=== PATIENT | female | born 1940 | race Caucasian/White ===

== ENCOUNTER 2018-06-07 07:52 | Day surgery (SDC) | payer MEDICARE, OTHER ==
[~2018-06-07] VITALS: Ht 157.5 cm; Wt 78.9 kg
[2018-06-07] MEDS ORDERED: METO25ER (09:04)
[2018-06-07] MEDS ORDERED: Hydrochloroth12.5 MG (09:05)
[2018-06-07] MEDS ORDERED: LEVSOD100 (09:05)
[2018-06-07] MEDS ORDERED: MIRT15 (09:06)
[2018-06-07] MEDS ORDERED: SIMV40 (09:06)
--- NOTE | 2018-06-07 09:28 | NUR ---
06/07/18 0928 Carlita Banks AND 1.5MG IV METOPROLOL GIVEN PER DR. GARCIA. METOPROLOL DOSE VARIFIED WITH ORSC.KT
--- NOTE | 2018-06-07 10:08 | NUR ---
06/07/18 1008 Carlita Banks NEAR CECUM BURNED.
== END 2018-06-07 10:59 | disposition home or self-care (01) ==
LOC: ORSCSDS 07:52
PROVIDERS: Internal Medicine Gastroenterology
PROC: 0D5H8ZZ Destruction of Cecum, Via Natural or Artificial Opening Endoscopic (ICD-10-PCS; principal; 2018-06-07 09:45)
PROC: 0DBM8ZX Excision of Descending Colon, Via Natural or Artificial Opening Endoscopic, Diagnostic (ICD-10-PCS; principal; 2018-06-07 09:45)
PROC: 0DBK8ZX Excision of Ascending Colon, Via Natural or Artificial Opening Endoscopic, Diagnostic (ICD-10-PCS; principal; 2018-06-07 09:45)
PROC: 0DBN8ZX Excision of Sigmoid Colon, Via Natural or Artificial Opening Endoscopic, Diagnostic (ICD-10-PCS; principal; 2018-06-07 09:45)
DX: Z12.11 Encounter for screening for malignant neoplasm of colon (principal); D12.2 Benign neoplasm of ascending colon; D12.4 Benign neoplasm of descending colon; K63.5 Polyp of colon; K57.30 Diverticulosis of large intestine without perforation or abscess without bleeding; K64.8 Other hemorrhoids; K64.4 Residual hemorrhoidal skin tags; I10 Essential (primary) hypertension; Z87.891 Personal history of nicotine dependence; J44.9 Chronic obstructive pulmonary disease, unspecified; E66.9 Obesity, unspecified; Z68.31 Body mass index [BMI] 31.0-31.9, adult; Z79.82 Long term (current) use of aspirin; Z79.899 Other long term (current) drug therapy
CPT/HCPCS: 88305; J7120

== ENCOUNTER → 2019-01-15 | Outpatient (CLI) | payer MEDICARE, OTHER ==
[~2019-01-15] MED LIST: Hydrochloroth12.5 MG; LEVSOD100; METO25ER; MIRT15; SIMV40
== END | disposition home or self-care (01) ==
LOC: LAB SHORT 07:48 → PLD 07:48
DX: L60.2 Onychogryphosis (principal); B35.1 Tinea unguium
CPT/HCPCS: 88305; 88312

== ENCOUNTER → 2019-01-28 | Outpatient (CLI) | payer MEDICARE, OTHER ==
[2019-01-28 11:35] LABS: Source, Urine Clean Catch
[2019-01-28 11:57] LABS: Bilirubin, Urine Neg (Neg); Blood, Urine 3+ (Neg); Glucose Qualitative, Urine Neg (Neg); Ketones, Urine Neg (Neg); Leukocyte Esterase, Urine Neg (Neg); Nitrite, Urine Neg (Neg); Protein, Urine Neg (Neg); Specific Gravity, Urine 1.005 (1.003-1.022); Urobilinogen, Urine NORM (Normal)
[2019-01-28 12:06] LABS: Appearance, Urine Clear (Clear); Bacteria Not Seen /hpf; Color, Urine Yellow (P-Yellow); Red Blood Cells, Urine 0-2 /hpf (0-2); Squamous Epithelial Cells Many /hpf (Few); White Blood Cells, Urine Not Seen /hpf (0-5)
== END | disposition home or self-care (01) ==
LOC: LAB 11:34 → LAB SHORT 11:34
PROVIDERS: Internal Medicine
DX: N39.0 Urinary tract infection, site not specified (principal)
CPT/HCPCS: 81001

== ENCOUNTER → 2019-02-26 | Outpatient (CLI) | payer MEDICARE, OTHER ==
[2019-02-26 10:52] LABS: Source, Urine Clean Catch
[2019-02-26 11:31] LABS: Bilirubin, Urine Neg (Neg); Blood, Urine 3+ (Neg); Glucose Qualitative, Urine Neg (Neg); Ketones, Urine Neg (Neg); Leukocyte Esterase, Urine Neg (Neg); Nitrite, Urine Neg (Neg); Protein, Urine Neg (Neg); Urobilinogen, Urine NORM (Normal); pH, Urine 6.5 (5.0-8.0)
[2019-02-26 12:02] LABS: Appearance, Urine Clear (Clear); Color, Urine Yellow (P-Yellow)
[2019-02-26 12:05] LABS: Bacteria Mod /hpf; Squamous Epithelial Cells Mod /hpf (Few)
== END | disposition home or self-care (01) ==
LOC: LAB SHORT 10:45 → LAB 10:45 → LAB SO 02-01 10:30
PROVIDERS: Internal Medicine
DX: N39.0 Urinary tract infection, site not specified (principal)
CPT/HCPCS: 81001; 87086

== ENCOUNTER 2023-01-02 05:39 | Emergency (ER) | payer MEDICARE, OTHER ==
[~2023-01-02] VITALS: Ht 157.5 cm; Wt 54.4 kg
[~2023-01-02 05:39] MED LIST changes: +FOSAMAX70 MG PO; +HYDCHL25 PO; +METOPROLOL TART25 MG PO; +Potassium Chlo20 ME1 PO; +STRIVERDI RESPIM4 G1 IH; +Simvastatin20 MG PO
[2023-01-02 06:14] LABS: BASOPHILS ABSOLUTE AUTO 0.04 K/mm3 (0.00-0.23); BASOPHILS PERCENT AUTO 1 % (0-2); EOSINOPHILS ABSOLUTE AUTO 0.14 K/mm3 (0.00-0.68); EOSINOPHILS PERCENT AUTO 2 % (0-6); Hematocrit 34.1 % (33.0-51.0); Hemoglobin 11.5 g/dL (11.5-16.0); IMMATURE GRAN ABSOLUTE AUTO 0.02 K/mm3 (0.00-0.10); IMMATURE GRAN PERCENT AUTO 0 % (0-1); LYMPHOCYTES ABSOLUTE AUTO 3.03 K/mm3 (0.84-5.20); LYMPHOCYTES PERCENT AUTO 36 % (21-46); MONOCYTES PERCENT AUTO 5 % (4-13); Mean Corpuscular HGB 29.9 pg (26.0-34.0); Mean Corpuscular HGB Conc 33.7 g/dL (31.5-36.5); Mean Corpuscular Volume 89 fL (80-100); NEUTROPHILS ABSOLUTE AUTO 4.78 K/mm3 (1.96-9.15); NEUTROPHILS PERCENT AUTO 57 % (41-73); Platelet Count 116 K/mm3 (150-400); RDW Coefficient Variation 12.7 % (11.7-14.2); RDW Standard Deviation 41.1 fL (35.1-46.3); Red Blood Cell Count 3.84 M/mm3 (3.80-5.20); White Blood Cell Count 8.41 K/mm3 (4.00-11.30)
[2023-01-02 06:31] LABS: Albumin, Blood 3.7 g/dL (3.4-5.0); Albumin/Globulin Ratio 1.1 (0.8-1.8); Bilirubin, Total 0.6 mg/dL (0.1-1.0); Calcium, Blood 9.6 mg/dL (8.5-10.1); Creatinine, Blood 0.66 mg/dL (0.40-1.00); Globulin, Blood 3.3 g/dL (2.2-4.0); Potassium, Blood 3.1 mmol/L (3.5-5.5)
[2023-01-02] MEDS ORDERED: MECL25 PO (08:12)
[2023-01-02 09:30] VITALS: BP 113/71
== END 2023-01-02 09:31 | disposition home or self-care (01) ==
LOC: ER 05:39
PROVIDERS: Student in an Organized Health Care Education/Training Program
DX: R42 Dizziness and giddiness (principal); E87.6 Hypokalemia; R11.0 Nausea; J44.9 Chronic obstructive pulmonary disease, unspecified; Z88.5 Allergy status to narcotic agent; Z79.899 Other long term (current) drug therapy; F17.200 Nicotine dependence, unspecified, uncomplicated
CPT/HCPCS: 80053; 85025; 99283; A9270

== ENCOUNTER 2023-01-12 16:46 | Observation (INO) | payer MEDICARE, OTHER ==
[~2023-01-12] VITALS: Ht 157.5 cm; Wt 54.4 kg
[~2023-01-12 16:46] MED LIST changes: -LEVSOD100; +LEVSOD100 PO; +MECL25 PO; -MIRT15; +MIRT15 PO; -Potassium Chlo20 ME1 PO
[2023-01-12 17:27] LABS: BASOPHILS ABSOLUTE AUTO 0.04 K/mm3 (0.00-0.23); BASOPHILS PERCENT AUTO 0 % (0-2); EOSINOPHILS ABSOLUTE AUTO 0.09 K/mm3 (0.00-0.68); EOSINOPHILS PERCENT AUTO 1 % (0-6); Hematocrit 33.8 % (33.0-51.0); Hemoglobin 11.5 g/dL (11.5-16.0); IMMATURE GRAN ABSOLUTE AUTO 0.02 K/mm3 (0.00-0.10); IMMATURE GRAN PERCENT AUTO 0 % (0-1); LYMPHOCYTES ABSOLUTE AUTO 2.44 K/mm3 (0.84-5.20); LYMPHOCYTES PERCENT AUTO 24 % (21-46); MONOCYTES ABSOLUTE AUTO 0.53 K/mm3 (0.16-1.47); MONOCYTES PERCENT AUTO 5 % (4-13); Mean Corpuscular HGB 30.1 pg (26.0-34.0); Mean Corpuscular Volume 89 fL (80-100); Mean Platelet Volume 9.9 fL (9.1-12.4); NEUTROPHILS ABSOLUTE AUTO 6.86 K/mm3 (1.96-9.15); NEUTROPHILS PERCENT AUTO 69 % (41-73); Platelet Count 151 K/mm3 (150-400); RDW Coefficient Variation 12.5 % (11.7-14.2); RDW Standard Deviation 40.2 fL (35.1-46.3); Red Blood Cell Count 3.82 M/mm3 (3.80-5.20); White Blood Cell Count 9.98 K/mm3 (4.00-11.30)
[2023-01-12 17:51] LABS: Albumin, Blood 3.9 g/dL (3.4-5.0); Albumin/Globulin Ratio 1.1 (0.8-1.8); Bilirubin, Total 0.5 mg/dL (0.1-1.0); Bun/Creatinine Ratio 39.6 (12.0-20.0); Calcium, Blood 10.4 mg/dL (8.5-10.1); Creatinine, Blood 0.56 mg/dL (0.40-1.00); Globulin, Blood 3.7 g/dL (2.2-4.0); Potassium, Blood 3.4 mmol/L (3.5-5.5); Total Protein, Blood 7.6 g/dL (6.4-8.2)
[2023-01-12] MEDS ORDERED: Potassium Chlo20 ME1 PO ×2 (18:35)
[2023-01-12] MEDS ORDERED: VITAMIN D310 MC4 PO ×2 (18:36)
[2023-01-12 22:00] LABS: International Normalized Ratio 1.16; Prothrombin Time Results 12.1 Sec (9.7-11.5)
[2023-01-12] MEDS ORDERED: GABA100 PO ×2 (23:22)
[2023-01-13 02:55] VITALS: BP 131/75
--- NOTE | 2023-01-13 03:05 | NUR ---
PATIENT ARRIVED FROM THE ER TODAY AT 0250. PATIENT IS DROWSY BUT IS AWAKENED TO VERBAL STIMULI. SHE ANSWERS QUESTIONS APPROPRIATELY. VS ARE WNL AND IS ON HER BASELINE OF 2L NC WITH >90% OXYGEN SATS. PATIENTS LUNG SOUNDS ARE DIMINISHED IN THE BASES AND SHE ALSO HAD A MOIST/PRODUCTIVE COUGH WITH LIGHT YELLOW COLORED PHLEGM SHE SPIT INTO A TISSUE. PATIENTS HOME CPAP IS IN THE ROOM, THIS NURSE NOTIFIED RT WHO WILL COME AND SET IT UP SHORTLY. PATIENT IS LAYING IN BED SNORING WITH CALL LIGHT IN REACH. DAUGHTER IS AT BEDSIDE WELL.
[2023-01-13 06:00] LABS: Hematocrit 31.9 % (33.0-51.0); Hemoglobin 10.6 g/dL (11.5-16.0); Mean Corpuscular HGB 29.9 pg (26.0-34.0); Mean Corpuscular HGB Conc 33.2 g/dL (31.5-36.5); Mean Corpuscular Volume 90 fL (80-100); Mean Platelet Volume 10.1 fL (9.1-12.4); Platelet Count 130 K/mm3 (150-400); RDW Coefficient Variation 12.4 % (11.7-14.2); RDW Standard Deviation 41.5 fL (35.1-46.3); Red Blood Cell Count 3.55 M/mm3 (3.80-5.20); White Blood Cell Count 9.08 K/mm3 (4.00-11.30)
[2023-01-13 06:32] LABS: Albumin, Blood 3.3 g/dL (3.4-5.0); Albumin/Globulin Ratio 1.1 (0.8-1.8); Bilirubin, Total 0.5 mg/dL (0.1-1.0); Bun/Creatinine Ratio 27.7 (12.0-20.0); Calcium, Blood 9.1 mg/dL (8.5-10.1); Creatinine, Blood 0.65 mg/dL (0.40-1.00); Potassium, Blood 3.7 mmol/L (3.5-5.5); Total Protein, Blood 6.3 g/dL (6.4-8.2)
[2023-01-13 08:07] VITALS: BP 139/79
--- NOTE | 2023-01-13 09:55 | NUR ---
AM NOTE: PATIENT ALERT AND ORIENTED X4. PERRLA, WEARING GLASSES. HISTORY OF NEUROPATHY. UP 1 PERSON ASSIST TO BSC, USING FWW. ABLE TO MOVE AND TURN SELF IN BED. ON 2L NASAL CANNULA SATING MID-HIGH 90'S. DENIES SOB. OCCASIONAL COUGH WITH CLEAR/THIN SPUTUM. HOME CPAP ON [place]. NO TELE. BP STABLE. DENIES CHEST PAIN/PRESSURE/PALPITATIONS. MINIMAL EDEMA NOTED TO BLE. NS INFUSING PER EMAR. BOWEL TONES PRESENT. PATIENT STATES 2 EPISODES OF BLOODY STOOLS YESTERDAY AT HOME. NO BLEEDING NOTED THIS AM. PATIENT UP TO BSC TO URINATE. GI CONSULT IN PLACE. FULL LIQUID DIET. NO SWALLOWING ISSUES NOTED. SKIN OVERALL C/D/I. GLUE BONE DRIER LOCKED IN MED DRAWER. DAUGHTER AT BEDSIDE FOR PROVIDOR VISITS. DNR BAND TO LEFT WRIST. DENIES NEEDS AT THIS TIME.
[2023-01-13 11:49] VITALS: BP 126/72
--- NOTE | 2023-01-13 13:00 | NUR ---
DR. DICK IN TO SEE PATIENT. PLAN FOR CARDIAC DIET AND TO RECHECK H&H AT 1600. DR. DICK PLACED CALL TO DAUGHTER SHANA TO UPDATED. DIET ORDERS AND LAB ORDERS IN PLACE. NO COLONOSCOPY PLAN AT THIS TIME.
[2023-01-13 15:43] VITALS: BP 118/75
[2023-01-13 16:56] LABS: Hematocrit 31.6 % (33.0-51.0); Hemoglobin 10.7 g/dL (11.5-16.0)
--- NOTE | 2023-01-13 18:26 | NUR ---
DISCHARGE: NO ACUTE CHANGES. H&H STABLE. DAUGHTER AND GRANDAUGHTER IN TO [employer]IE [employer] USHER. DISCHARGE INSTRUCTIONS REVIEWED WITH FAMILY PRESENT. PATIENT TO FOLLOW UP WITHIN 2 WEEKS. IV REMOVED WNL. PATIENT LEFT UNIT WITH ALL PERSONAL BELONGINGS INCLUDING HOME CPAP AND DISCHARGE PACKET.
== END 2023-01-13 18:15 | disposition home or self-care (01) ==
LOC: ER 16:46 → PCU 20:44 → ER 20:44 → ERHOLD 20:44 → PCU 20:44 → ERHOLD 20:45 → PCU 01-13 02:39
PROVIDERS: Internal Medicine; Nurse Practitioner Acute Care; Physician Assistant; Student in an Organized Health Care Education/Training Program; ADMIT Internal Medicine
DX: K62.5 Hemorrhage of anus and rectum (principal); J44.9 Chronic obstructive pulmonary disease, unspecified; Z99.81 Dependence on supplemental oxygen; E78.5 Hyperlipidemia, unspecified; I10 Essential (primary) hypertension; E03.9 Hypothyroidism, unspecified; Z88.5 Allergy status to narcotic agent; E87.1 Hypo-osmolality and hyponatremia; E83.52 Hypercalcemia; G47.33 Obstructive sleep apnea (adult) (pediatric); F41.9 Anxiety disorder, unspecified
CPT/HCPCS: 36415; 80053; 82272; 85014; 85018; 85025; 85027; 85610; 86850; 86900; 86901; 94640; 94660; 94664; 94762; 99285-25; A9270; G0378; J7030

== ENCOUNTER 2023-01-16 04:46 | Emergency (ER) | payer MEDICARE, OTHER ==
[~2023-01-16] VITALS: Ht 157.5 cm; Wt 54.4 kg
[~2023-01-16 04:46] MED LIST changes: +GABA100 PO; +Potassium Chlo20 ME1 PO; +VITAMIN D310 MC4 PO
[2023-01-16 05:05] LABS: BASOPHILS ABSOLUTE AUTO 0.06 K/mm3 (0.00-0.23); BASOPHILS PERCENT AUTO 1 % (0-2); EOSINOPHILS ABSOLUTE AUTO 0.17 K/mm3 (0.00-0.68); EOSINOPHILS PERCENT AUTO 2 % (0-6); Hematocrit 33.6 % (33.0-51.0); Hemoglobin 11.2 g/dL (11.5-16.0); IMMATURE GRAN ABSOLUTE AUTO 0.03 K/mm3 (0.00-0.10); IMMATURE GRAN PERCENT AUTO 0 % (0-1); LYMPHOCYTES ABSOLUTE AUTO 2.95 K/mm3 (0.84-5.20); LYMPHOCYTES PERCENT AUTO 28 % (21-46); MONOCYTES PERCENT AUTO 6 % (4-13); Mean Corpuscular HGB 29.7 pg (26.0-34.0); Mean Corpuscular HGB Conc 33.3 g/dL (31.5-36.5); Mean Corpuscular Volume 89 fL (80-100); Mean Platelet Volume 9.9 fL (9.1-12.4); NEUTROPHILS ABSOLUTE AUTO 6.64 K/mm3 (1.96-9.15); NEUTROPHILS PERCENT AUTO 64 % (41-73); Platelet Count 139 K/mm3 (150-400); RDW Coefficient Variation 12.6 % (11.7-14.2); RDW Standard Deviation 41.5 fL (35.1-46.3); Red Blood Cell Count 3.77 M/mm3 (3.80-5.20); White Blood Cell Count 10.45 K/mm3 (4.00-11.30)
[2023-01-16 05:08] LABS: Base Excess Venous 9.6 mmol/L; Bicarbonate Venous 31.2 mmol/L (24.0-30.0)
[2023-01-16 05:26] LABS: Albumin, Blood 3.6 g/dL (3.4-5.0); Bilirubin, Total 0.5 mg/dL (0.1-1.0); Bun/Creatinine Ratio 24.9 (12.0-20.0); Calcium, Blood 9.5 mg/dL (8.5-10.1); Creatinine, Blood 0.64 mg/dL (0.40-1.00); Globulin, Blood 3.5 g/dL (2.2-4.0); Magnesium, Blood 1.5 mg/dL (1.6-2.4); Potassium, Blood 3.5 mmol/L (3.5-5.5); Total Protein, Blood 7.1 g/dL (6.4-8.2)
[2023-01-16] MEDS ORDERED: AZIT250 PO (07:10)
[2023-01-16] MEDS ORDERED: PRED20 PO (07:10)
[2023-01-16 08:44] VITALS: BP 130/81
== END 2023-01-16 08:43 | disposition home or self-care (01) ==
LOC: ER 04:46
PROVIDERS: Student in an Organized Health Care Education/Training Program
DX: J44.1 Chronic obstructive pulmonary disease with (acute) exacerbation (principal); Z88.5 Allergy status to narcotic agent; Z79.899 Other long term (current) drug therapy; I10 Essential (primary) hypertension; E78.5 Hyperlipidemia, unspecified; E03.9 Hypothyroidism, unspecified; F17.210 Nicotine dependence, cigarettes, uncomplicated
CPT/HCPCS: 71046; 71275; 80053; 82803; 83735; 83880; 84145; 84484; 85025; 93005; 93010; 96365; 96375; 99285-25; A9270; J1885; J3475; J7512; Q9967

== ENCOUNTER 2023-07-02 19:27 | Inpatient (IN) | payer MEDICARE, OTHER ==
[~2023-07-02] VITALS: Ht 154.9 cm; Wt 66.0 kg
[~2023-07-02 19:27] MED LIST changes: +AZIT250 PO; +PRED20 PO
[2023-07-02 19:42] LABS: BASOPHILS ABSOLUTE AUTO 0.05 K/mm3 (0.00-0.23); BASOPHILS PERCENT AUTO 0 % (0-2); EOSINOPHILS ABSOLUTE AUTO 0.11 K/mm3 (0.00-0.68); EOSINOPHILS PERCENT AUTO 1 % (0-6); Hematocrit 34.4 % (33.0-51.0); Hemoglobin 10.8 g/dL (11.5-16.0); IMMATURE GRAN ABSOLUTE AUTO 0.04 K/mm3 (0.00-0.10); IMMATURE GRAN PERCENT AUTO 0 % (0-1); LYMPHOCYTES ABSOLUTE AUTO 2.63 K/mm3 (0.84-5.20); LYMPHOCYTES PERCENT AUTO 21 % (21-46); MONOCYTES ABSOLUTE AUTO 0.68 K/mm3 (0.16-1.47); MONOCYTES PERCENT AUTO 5 % (4-13); Mean Corpuscular HGB 28.5 pg (26.0-34.0); Mean Corpuscular HGB Conc 31.4 g/dL (31.5-36.5); Mean Corpuscular Volume 91 fL (80-100); Mean Platelet Volume 9.3 fL (9.1-12.4); NEUTROPHILS ABSOLUTE AUTO 9.14 K/mm3 (1.96-9.15); NEUTROPHILS PERCENT AUTO 72 % (41-73); Platelet Count 202 K/mm3 (150-400); RDW Standard Deviation 47.4 fL (35.1-46.3); Red Blood Cell Count 3.79 M/mm3 (3.80-5.20); White Blood Cell Count 12.65 K/mm3 (4.00-11.30)
[2023-07-02 20:11] LABS: Albumin, Blood 3.2 g/dL (3.4-5.0); Albumin/Globulin Ratio 0.7 (0.8-1.8); Bilirubin, Total 0.3 mg/dL (0.1-1.0); Bun/Creatinine Ratio 31.8 (12.0-20.0); Calcium, Blood 9.7 mg/dL (8.5-10.1); Creatinine, Blood 0.72 mg/dL (0.40-1.00); Globulin, Blood 4.5 g/dL (2.2-4.0); Potassium, Blood 3.5 mmol/L (3.5-5.5); Total Protein, Blood 7.7 g/dL (6.4-8.2)
[2023-07-02] MEDS ORDERED: Albuterol 2.5 MG/3 ML VIAL INH ONE (20:15)
[2023-07-02] MEDS ORDERED: Azithromycin 250 MG Tab PO ONE (20:45)
[2023-07-02] MEDS ORDERED: CefTRIAXone Sodium 1,000 MG in NS 50 ML IV ONE (20:45)
[2023-07-02] MEDS ORDERED: FentaNYL Citrate 50 MCG/ML 2 ML Injection IV PRN (21:20)
[2023-07-02] MEDS ORDERED: Ondansetron HCl 2 MG / ML 2ML Vial IV ONE (21:20)
[2023-07-02 22:03] LABS: Influenza A, PCR NEGATIVE (NEGATIVE); Influenza B, PCR NEGATIVE (NEGATIVE); Resp Syncytial Virus, PCR NEGATIVE (NEGATIVE); SARS-Cov-2 (COVID-19) PCR, MMC NEGATIVE (NEGATIVE)
[2023-07-02] MEDS ORDERED: FURO20 PO (22:19)
[2023-07-02] MEDS ORDERED: Ondansetron HCl 2 MG / ML 2ML Vial IV PRN (22:20)
[2023-07-02] MEDS ORDERED: HYDROCODONE-AC1 EA19 PO (22:20)
[2023-07-02] MEDS ORDERED: FOSAMAX70 MG PO (22:21)
[2023-07-02] MEDS ORDERED: FLU VACC QS2023-24(6MOS UP)/PF 60 MCG/0.5 ML SYRINGE IM ONE (22:25)
[2023-07-02] MEDS ORDERED: Enoxaparin 40 MG/0.4 ML SYR SC SCH (23:00)
[2023-07-02] MEDS ORDERED: Ipratropium/Albuterol SulF 2.5-0.5MG/3 ML Amp INH PRN (23:25)
[2023-07-02 23:53] VITALS: BP 109/75
[2023-07-03] MEDS ORDERED: HYDROcodone 5-APAP 325 TAB PO PRN (02:05)
[2023-07-03 04:06] VITALS: BP 94/48
[2023-07-03 04:09] VITALS: BP 94/65
[2023-07-03 05:10] LABS: BASOPHILS ABSOLUTE AUTO 0.04 K/mm3 (0.00-0.23); BASOPHILS PERCENT AUTO 0 % (0-2); EOSINOPHILS ABSOLUTE AUTO 0.09 K/mm3 (0.00-0.68); EOSINOPHILS PERCENT AUTO 1 % (0-6); Hematocrit 32.5 % (33.0-51.0); IMMATURE GRAN ABSOLUTE AUTO 0.04 K/mm3 (0.00-0.10); IMMATURE GRAN PERCENT AUTO 0 % (0-1); LYMPHOCYTES ABSOLUTE AUTO 2.52 K/mm3 (0.84-5.20); LYMPHOCYTES PERCENT AUTO 22 % (21-46); MONOCYTES ABSOLUTE AUTO 0.83 K/mm3 (0.16-1.47); MONOCYTES PERCENT AUTO 7 % (4-13); Mean Corpuscular HGB 28.5 pg (26.0-34.0); Mean Corpuscular HGB Conc 30.8 g/dL (31.5-36.5); Mean Corpuscular Volume 93 fL (80-100); Mean Platelet Volume 9.3 fL (9.1-12.4); NEUTROPHILS ABSOLUTE AUTO 8.18 K/mm3 (1.96-9.15); NEUTROPHILS PERCENT AUTO 70 % (41-73); Platelet Count 190 K/mm3 (150-400); RDW Coefficient Variation 14.4 % (11.7-14.2); RDW Standard Deviation 48.8 fL (35.1-46.3); Red Blood Cell Count 3.51 M/mm3 (3.80-5.20)
[2023-07-03] MEDS ORDERED: MethylPREDNISolone Sod Succ 125 MG Vial IV SCH (05:34)
[2023-07-03 05:59] LABS: Albumin, Blood 2.9 g/dL (3.4-5.0); Albumin/Globulin Ratio 0.7 (0.8-1.8); Bilirubin, Total 0.3 mg/dL (0.1-1.0); Bun/Creatinine Ratio 29.3 (12.0-20.0); Calcium, Blood 9.4 mg/dL (8.5-10.1); Creatinine, Blood 0.68 mg/dL (0.40-1.00); Potassium, Blood 3.7 mmol/L (3.5-5.5); Total Protein, Blood 6.9 g/dL (6.4-8.2)
[2023-07-03 06:51] VITALS: BP 104/68
[2023-07-03 07:25] VITALS: BP 102/70
[2023-07-03] MEDS ORDERED: Furosemide 20 MG Tab PO SCH ×2 (09:00)
[2023-07-03] MEDS ORDERED: Potassium Chloride 20 MEQ TabCR PO SCH (09:00)
[2023-07-03] MEDS ORDERED: Gabapentin 100 MG Cap PO SCH (09:00)
[2023-07-03] MEDS ORDERED: Albuterol 2.5 MG/3 ML VIAL INH SCH ×2 (10:30→12:00)
[2023-07-03 15:49] VITALS: BP 97/66
[2023-07-03 20:33] VITALS: BP 98/59
[2023-07-03] MEDS ORDERED: Azithromycin 500 MG in NS 250 ML IV SCH (21:00)
[2023-07-03] MEDS ORDERED: Lactobacil 2-S.Thermo-Bifido 1 1 Cap PO SCH (21:00)
[2023-07-03] MEDS ORDERED: CefTRIAXone Sodium 1,000 MG in NS 50 ML IV SCH (21:00)
[2023-07-04 03:27] VITALS: BP 133/83
[2023-07-04 05:54] LABS: BASOPHILS ABSOLUTE AUTO 0.01 K/mm3 (0.00-0.23); BASOPHILS PERCENT AUTO 0 % (0-2); EOSINOPHILS PERCENT AUTO 0 % (0-6); Hematocrit 32.7 % (33.0-51.0); Hemoglobin 10.2 g/dL (11.5-16.0); IMMATURE GRAN ABSOLUTE AUTO 0.06 K/mm3 (0.00-0.10); IMMATURE GRAN PERCENT AUTO 1 % (0-1); LYMPHOCYTES ABSOLUTE AUTO 1.02 K/mm3 (0.84-5.20); LYMPHOCYTES PERCENT AUTO 9 % (21-46); MONOCYTES ABSOLUTE AUTO 0.09 K/mm3 (0.16-1.47); MONOCYTES PERCENT AUTO 1 % (4-13); Mean Corpuscular HGB 28.7 pg (26.0-34.0); Mean Corpuscular HGB Conc 31.2 g/dL (31.5-36.5); Mean Corpuscular Volume 92 fL (80-100); Mean Platelet Volume 9.5 fL (9.1-12.4); NEUTROPHILS PERCENT AUTO 90 % (41-73); Platelet Count 204 K/mm3 (150-400); RDW Coefficient Variation 13.9 % (11.7-14.2); RDW Standard Deviation 47.8 fL (35.1-46.3); Red Blood Cell Count 3.56 M/mm3 (3.80-5.20); White Blood Cell Count 11.78 K/mm3 (4.00-11.30)
[2023-07-04] MEDS ORDERED: Levothyroxine Sodium 0.1 MG Tab PO SCH (06:00)
[2023-07-04 07:14] LABS: Bun/Creatinine Ratio 29.9 (12.0-20.0); Calcium, Blood 9.7 mg/dL (8.5-10.1); Creatinine, Blood 0.7 mg/dL (0.40-1.00); Potassium, Blood 4.5 mmol/L (3.5-5.5)
[2023-07-04 07:56] VITALS: BP 116/78
[2023-07-04 15:34] VITALS: BP 115/75
[2023-07-04] MEDS ORDERED: OxyCODONE HCl Soln 20 MG/ML 1 ML Oral SYR SL PRN (15:40)
[2023-07-05 04:35] VITALS: BP 124/84
[2023-07-05 07:13] VITALS: BP 133/86
[2023-07-05] MEDS ORDERED: Polyethylene Glycol 3350 17 gm PO PRN (09:05)
[2023-07-05] MEDS ORDERED: MIRALAX17 GM PO (11:39)
[2023-07-05] MEDS ORDERED: Colace100 MG PO (11:39)
[2023-07-05] MEDS ORDERED: OXYC1L SL (11:57)
[2023-07-05] MEDS ORDERED: Docusate Sodium 100 MG Cap PO SCH (21:00)
== END 2023-07-05 14:29 | disposition hospice, home (50) | DRG 189 ==
LOC: ER 19:27 → MEDS 22:19 → ENPENDDIS 07-05 10:05 → MEDS 07-05 14:29
PROVIDERS: Emergency Medicine; Family Medicine; Student in an Organized Health Care Education/Training Program; ADMIT Internal Medicine
DX: J96.21 Acute and chronic respiratory failure with hypoxia (principal); J44.1 Chronic obstructive pulmonary disease with (acute) exacerbation; E87.1 Hypo-osmolality and hyponatremia; R04.2 Hemoptysis; C34.12 Malignant neoplasm of upper lobe, left bronchus or lung; C79.9 Secondary malignant neoplasm of unspecified site; I50.30 Unspecified diastolic (congestive) heart failure; I71.60 Thoracoabdominal aortic aneurysm, without rupture, unspecified; Z51.5 Encounter for palliative care; Z66 Do not resuscitate; I25.10 Atherosclerotic heart disease of native coronary artery without angina pectoris; I11.0 Hypertensive heart disease with heart failure; E78.5 Hyperlipidemia, unspecified; E03.9 Hypothyroidism, unspecified; D63.0 Anemia in neoplastic disease; G62.9 Polyneuropathy, unspecified; G89.3 Neoplasm related pain (acute) (chronic); G47.33 Obstructive sleep apnea (adult) (pediatric); Z99.81 Dependence on supplemental oxygen; Z79.890 Hormone replacement therapy; Z88.5 Allergy status to narcotic agent; Z87.891 Personal history of nicotine dependence; Z11.52 Encounter for screening for COVID-19; Z79.52 Long term (current) use of systemic steroids; Z79.2 Long term (current) use of antibiotics
CPT/HCPCS: 0241U; 36415; 71045; 80048; 80053; 83605; 83880; 85025; 87040; 87070; 87205; 93005; 93010; 93306; 94640; 94660; 94664; 94760; 94762; 96365; 96375; 99285-25; A9270; J0456; J0696; J1650; J2405; J2930; J3010; J7050